=== PATIENT | male | born 1995 | race Caucasian/White ===

== ENCOUNTER 2018-10-16 02:19 | Emergency (ER) | payer SELFPAY ==
[~2018-10-16] VITALS: Ht 170.2 cm; Wt 94.3 kg
[2018-10-16 02:59] LABS: GLUCOSE,POINT OF CARE 112 MG/DL (70-110)
[2018-10-16 07:57] VITALS: BP 109/66
== END 2018-10-16 08:16 | disposition home or self-care (01) ==
LOC: EMS 02:23 → EDBD 02:23 → EMS 08:16
DX: F10.129 Alcohol abuse with intoxication, unspecified (principal); F17.200 Nicotine dependence, unspecified, uncomplicated; Y90.8 Blood alcohol level of 240 mg/100 ml or more
CPT/HCPCS: 36415; 82948; 82962; 99283; G0480